=== PATIENT | male | born 1995 | race Caucasian/White ===

== ENCOUNTER 2023-06-13 01:56 | Emergency (ER) | payer OTHER ==
[2023-06-13] MEDS ORDERED: Augmentin 875-125 Tablet PO ONE (02:24)
[2023-06-13] MEDS ORDERED: NORCO 5/325 MG PO ONE (02:24)
--- NOTE | 2023-06-13 02:29 | ERPHSYRPT ---
- History of Present Illness Source: patient Physician History: 28 years old male with no past medical history presented to the emergency room with a chief complaint of right upper wisdom tooth ache and swelling that he has been having for the last couple of days. The patient has been taking Tylenol only. He is allergic to nonsteroidals which cause anaphylaxis. He is also doing mouthwash with Listerine. He has not called his dentist yet. He denies any difficulty swallowing or breathing. Allergies/Adverse Reactions: aspirin Allergy (Severe, Verified 06/13/23 02:33) Tightness of Throat naproxen Allergy (Severe, Verified 06/13/23 02:33) Tightness of Throat - Review of Systems Constitutional: No Fever, No Chills Eyes: No Symptoms Ears, Nose, & Throat: No Symptoms, Other (Tooth ache) Respiratory: No Cough, No Dyspnea Cardiac: No Chest Pain, No Edema, No Syncope Abdominal/Gastrointestinal: No Abdominal Pain, No Nausea, No Vomiting, No Diarrhea Genitourinary Symptoms: No Dysuria Musculoskeletal: No Back Pain, No Neck Pain Skin: No Rash Neurological: No Dizziness, No Focal Weakness, No Sensory Changes Psychological: No Symptoms Endocrine: No Symptoms All Other Systems: Reviewed and Negative - Nursing Vital Signs Nursing Vital Signs: Initial Vital Signs Temperature 98.6 F 06/13/23 02:13 Pulse Rate 85 06/13/23 02:13 Respiratory Rate 16 06/13/23 02:13 Blood Pressure 127/77 06/13/23 02:13 O2 Sat by Pulse Oximetry 99 06/13/23 02:13 Pain Scale Pain Intensity 6 - Physical Exam General Appearance: no apparent distress, alert Eye Exam: PERRL/EOMI, eyes nml inspection Ears, Nose, Throat Exam: normal ENT inspection, TMs normal, pharynx normal, moist mucous membranes, other (Tenderness over the right upper wisdom tooth with swelling to the gum.) Neck Exam: normal inspection, non-tender, supple, full range of motion Respiratory Exam: normal breath sounds, lungs clear, No respiratory distress Cardiovascular Exam: regular rate/rhythm, normal heart sounds, normal peripheral pulses Gastrointestinal/Abdomen Exam: soft, normal bowel sounds, No tenderness, No mass Back Exam: normal inspection, normal range of motion, No CVA tenderness, No vertebral tenderness Extremity Exam: normal inspection, normal range of motion, pelvis stable Neurologic Exam: alert, oriented x 3, cooperative, normal mood/affect, nml cerebellar function, nml station & gait, sensation nml, No motor deficits Skin Exam: normal color, warm, dry, No rash Lymphatic Exam: No adenopathy - Course Nursing assessment & vital signs reviewed: Yes Ordered Tests: Medication Summary Discontinued Medications Generic Name Dose Route Start Last Admin Trade Name Michael PRN Reason Stop Dose Admin Hydrocodone Bitart/Acetaminophen 2 tab 06/13/23 02:24 Hydrocodone/Apap 5/325 1 Tab Tablet PO 06/13/23 02:25 SENT HOME W/ PATIENT ONE Amoxicillin/Clavulanate Potassium 875 mg 06/13/23 02:24 Amox Tr/Potassium Clavulanate 875 Mg Tablet PO 06/13/23 02:25 STAT ONE - Progress Progress: unchanged Progress Note: 06/13/23 02:27 28 years old male with no past medical history presented to the emergency room with a chief complaint of right upper wisdom tooth ache and swelling that he has been having for the last couple of days. The patient has been taking Tylenol only. He is allergic to nonsteroidals which cause anaphylaxis. He is also doing mouthwash with Listerine. He has not called his dentist yet. He denies any difficulty swallowing or breathing. Emergency room course and medical decision making: The patient will be treated for tooth abscess with Augmentin 875 [address] He [address] himself to the emergency room he will be given 2 [place] tablets that he can take at home. Discharged home on Augmentin 500 mg 3 times a day Call his dentist. - Departure Departure Disposition: Home Clinical Impression: Tooth ache Condition: Stable Critical Care Time: No Instructions: Tooth Abscess (DC), Tooth Decay, Adult (DC), Dental Pain (DC) Prescriptions: Amoxicillin/Potassium Clav [Augmentin 500-125 Tablet] 1 each PO TID 7 Days tablet
[2023-06-13 02:31] VITALS: BP 127/77; PULSE 85; RESP 16; TEMP 98.6; O2SAT 99
[2023-06-13] MEDS ORDERED: Augmentin 875-125 Tablet ONE (02:40)
[2023-06-13] MEDS ORDERED: NORCO 5/325 MG ONE (02:40)
== END 2023-06-13 03:21 | disposition home or self-care (01) ==
LOC: ED 01:56
DX: K08.89 Other specified disorders of teeth and supporting structures (principal); K04.7 Periapical abscess without sinus
CPT/HCPCS: 99281; A9270-GY

== ENCOUNTER 2023-06-15 22:26 | Emergency (ER) | payer OTHER ==
[2023-06-15 22:47] VITALS: TEMP 98
[2023-06-15] MEDS ORDERED: MORPHINE SULFATE 4 MG INJ IV ONE (22:47)
[2023-06-15] MEDS ORDERED: Zofran 4 MG/2 ML VIAL IV ONE (22:47)
--- NOTE | 2023-06-15 22:47 | ERPHSYRPT ---
- History of Present Illness Time Seen by Provider: 06/15/23 22:37 Source: patient Exam Limitations: no limitations Physician History: About 45 minutes ago pt was working at [facility] at [place], [place], when he was pulled into a conveyor belt and a 3" - 4" spike pierced the right posteriolateral aspect of his mid right thigh with surrounding edema, multiple abrasions and transient numbness of the right large toe. Pt states his last tetanus was 2 years ago. Allergies/Adverse Reactions: aspirin Allergy (Severe, Verified 06/15/23 22:56) Tightness of Throat naproxen Allergy (Severe, Verified 06/15/23 22:56) Tightness of Throat Hx Tetanus, Diphtheria Vaccination/Date Given: Yes Hx Influenza Vaccination/Date Given: No Hx Pneumococcal Vaccination/Date Given: No Travel Risk - Vaccine Status Have you recieved a Covid-19 vaccination: No - Review of Systems Respiratory: No Dyspnea Cardiac: No Chest Pain Abdominal/Gastrointestinal: No Abdominal Pain Musculoskeletal: Other (right thigh trauma about 45 minutes ago) Neurological: Sensory Changes (transient numbness of right large toe today after injury to right thigh) - Past Medical History Pertinent Past Medical History: Yes Other Medical History: gastric ulcers, kidney stones - Past Surgical History Past Surgical History: No - Social History Smoking Status: Current every day smoker How long have you smoked: 10 yrs Exposure to second hand smoke: Yes Drug Use: none - Nursing Vital Signs Nursing Vital Signs: Initial Vital Signs Blood Pressure 119/97 06/15/23 22:43 O2 Sat by Pulse Oximetry 100 06/15/23 22:43 Pain Scale Pain Intensity 8 - Physical Exam General Appearance: alert Eyes, Ears, Nose, Throat Exam: TMs normal, pharynx normal Neck Exam: normal inspection, non-tender Cardiovascular/Respiratory Exam: normal breath sounds, heart sounds normal Gastrointestinal/Abdominal Exam: soft Back Exam: No vertebral tenderness Hips Exam: right: limited range of motion (limited flexion), left: normal range of motion Legs Exam: right leg: limited range of motion, left leg: normal range of motion Knees Exam: right knee: other (limited extension ), left knee: normal range of motion Ankle Exam: bilateral ankle: normal range of motion Foot Exam: bilateral foot: normal range of motion Neuro/Tendon Exam: normal sensation Mental Status Exam: alert, cooperative Skin Exam: other (Posteriolateral aspect of mid right thigh has a deep 3 cm x 2 cm laceration/skin avulsion with surrounding multiple abrasions and tenderness and edema of the right thigh.), No cyanosis SpO2 Interpretation: normal SpO2: 100 O2 Delivery: Room Air - Radiology Exams Right Femur X-ray Interpretation: Interpreted by me, No Fracture Ordered Tests: Active Orders 24 hr Category Date Time Status IV Insertion STAT Care 06/15/23 22:47 Active FEMUR Stat Exams 06/15/23 22:50 Taken BMP Stat Lab 06/15/23 23:08 Completed CBC W DIFF Stat Lab 06/15/23 23:08 Completed UA W/RFX UR CULTURE Stat Lab 06/15/23 23:21 Completed Urine Triage Profile Stat Lab 06/15/23 23:21 Completed Medication Summary Generic Name Dose Route Start Last Admin Trade Name Freq PRN Reason Stop Dose Admin Sodium Chloride 1,000 mls @ 100 mls/hr 06/15/23 23:00 06/15/23 23:13 Sodium Chloride 0.9% 1000 Ml IV 07/15/23 22:59 100 mls/hr .Q10H ENRIQUE Administration Discontinued Medications Generic Name Dose Route Start Last Admin Trade Name Freq PRN Reason Stop Dose Admin Clindamycin HCl/Dextrose 600 mg in 50 mls @ 100 mls/hr 06/15/23 22:54 06/15/23 23:58 Clindamycin-D5w 600 Mg/50 Ml IV 06/15/23 23:23 Infused STAT STA Infusion Clindamycin HCl/Dextrose Confirm 06/15/23 23:07 Clindamycin-D5w 600 Mg/50 Ml Administered 06/15/23 23:08 Dose 600 mg in 50 mls @ ud IV .STK-MED ONE Morphine Sulfate 4 mg 06/15/23 22:47 06/15/23 23:15 Morphine Sulfate 4 Mg/Ml Injection IV 06/15/23 22:48 4 mg STAT ONE Administration Morphine Sulfate Confirm 06/15/23 23:06 Morphine Sulfate 4 Mg/Ml Injection Administered 06/15/23 23:07 Dose 4 mg .ROUTE .STK-MED ONE Ondansetron HCl 4 mg 06/15/23 22:47 06/15/23 23:15 Ondansetron Hcl 4 Mg/2 Ml Vial IV 06/15/23 22:48 4 mg STAT ONE Administration Ondansetron HCl Confirm 06/15/23 23:06 Ondansetron Hcl 4 Mg/2 Ml Vial Administered 06/15/23 23:07 Dose 4 mg .ROUTE .STK-MED ONE Lab/Rad Data: Laboratory Result Diagrams 06/15/23 23:08 06/15/23 23:08 Laboratory Results 06/15/23 06/15/23 06/15/23 Range/Units 23:21 23:21 23:08 WBC (4.0-10.5) x10^3/uL RBC (4.1-5.6) x10^6/uL Hgb (12.5-18.0) g/dL Hct (42-50) % MCV (78-100) fL MCH (26-32) pg MCHC (32-36) g/dL RDW (11.5-14.0) % Plt Count (150-450) x10^3/uL MPV (7.5-11.0) fL Gran % (36.0-66.0) % Immature Gran % (Auto) (0.00-0.4) % Nucleat RBC Rel Count (0.00-0.1) % Eos # (Auto) (0-0.5) x10^3/uL Immature Gran # (Auto) (0.00-0.03) x10^3u/L Absolute Lymphs (auto) (1.0-4.6) x10^3/uL Absolute Monos (auto) (0.0-1.3) x10^3/uL Absolute Nucleated RBC (0.00-0.01) x10^3u/L Lymphocytes % (24.0-44.0) % Monocytes % (0.0-12.0) % Eosinophils % (0.00-5.0) % Basophils % (0.0-0.4) % Absolute Granulocytes (1.4-6.9) x10^3/uL Basophils # (0-0.4) x10^3/uL Sodium 138 (137-145) mmol/L Potassium 3.5 (3.5-5.1) mmol/L Chloride 105 (98-107) mmol/L Carbon Dioxide 24 (22-30) mmol/L Anion Gap 12.4 (5-15) MEQ/L BUN 11 (9-20) mg/dL Creatinine 0.70 (0.66-1.25) mg/dL Estimated GFR 130.3 ML/MIN Glucose 90 (74-106) mg/dL Calcium 9.5 (8.4-10.2) mg/dL Urine Color Yellow (Yellow) Urine Appearance Clear (Clear) Urine pH 7.5 (4.6-8.0) Ur Specific [place] 1.020 (1.005-1.030) Urine Protein Negative (Negative) Urine Glucose (UA) Negative (Negative) mg/dL Urine Ketones Negative (Negative) Urine Blood Negative (Negative) Urine Nitrite Negative (Negative) Urine Bilirubin Negative (Negative) Urine Urobilinogen 1.0 A (0.2) mg/dL Ur Leukocyte Esterase Negative (Negative) U Hyaline Cast (Auto) NONE SEEN (0-2) /LPF Urine Microscopic RBC 0-2 (0-5) /HPF Urine Microscopic WBC 0-2 (0-5) /HPF Ur Epithelial Cells None Seen (None Seen) /HPF Urine Bacteria None Seen (None Seen) /HPF Urine Culture Reflexed NO (NO) Urine Opiates Level NEGATIVE (NEGATIVE) Ur Methadone NEGATIVE (NEGATIVE) Urine Barbiturates NEGATIVE (NEGATIVE) Ur Phencyclidine (PCP) NEGATIVE (NEGATIVE) Urine Amphetamine NEGATIVE (NEGATIVE) U Benzodiazepine Level NEGATIVE (NEGATIVE) Urine Cocaine NEGATIVE (NEGATIVE) Urine Marijuana (THC) POSITIVE A (NEGATIVE) 06/15/23 Range/Units 23:08 WBC 5.7 (4.0-10.5) x10^3/uL RBC 5.06 (4.1-5.6) x10^6/uL Hgb 15.4 (12.5-18.0) g/dL Hct 44.8 (42-50) % MCV 88.5 (78-100) fL MCH 30.4 (26-32) pg MCHC 34.4 (32-36) g/dL RDW 11.6 (11.5-14.0) % Plt Count 229 (150-450) x10^3/uL MPV 9.5 (7.5-11.0) fL Gran % 70.4 H (36.0-66.0) % Immature Gran % (Auto) 0.2 (0.00-0.4) % Nucleat RBC Rel Count 0.0 (0.00-0.1) % Eos # (Auto) 0.06 (0-0.5) x10^3/uL Immature Gran # (Auto) 0.01 (0.00-0.03) x10^3u/L Absolute Lymphs (auto) 1.28 (1.0-4.6) x10^3/uL Absolute Monos (auto) 0.29 (0.0-1.3) x10^3/uL Absolute Nucleated RBC 0.00 (0.00-0.01) x10^3u/L Lymphocytes % 22.7 L (24.0-44.0) % Monocytes % 5.1 (0.0-12.0) % Eosinophils % 1.1 (0.00-5.0) % Basophils % 0.5 (0.0-0.4) % Absolute Granulocytes 3.98 (1.4-6.9) x10^3/uL Basophils # 0.03 (0-0.4) x10^3/uL Sodium (137-145) mmol/L Potassium (3.5-5.1) mmol/L Chloride (98-107) mmol/L Carbon Dioxide (22-30) mmol/L Anion Gap (5-15) MEQ/L BUN (9-20) mg/dL Creatinine (0.66-1.25) mg/dL Estimated GFR ML/MIN Glucose (74-106) mg/dL Calcium (8.4-10.2) mg/dL Urine Color (Yellow) Urine Appearance (Clear) Urine pH (4.6-8.0) Ur Specific [place] (1.005-1.030) Urine Protein (Negative) Urine Glucose (UA) (Negative) mg/dL Urine Ketones (Negative) Urine Blood (Negative) Urine Nitrite (Negative) Urine Bilirubin (Negative) Urine Urobilinogen (0.2) mg/dL Ur Leukocyte Esterase (Negative) U Hyaline Cast (Auto) (0-2) /LPF Urine Microscopic RBC (0-5) /HPF Urine Microscopic WBC (0-5) /HPF Ur Epithelial Cells (None Seen) /HPF Urine Bacteria (None Seen) /HPF Urine Culture Reflexed (NO) Urine Opiates Level (NEGATIVE) Ur Methadone (NEGATIVE) Urine Barbiturates (NEGATIVE) Ur Phencyclidine (PCP) (NEGATIVE) Urine Amphetamine (NEGATIVE) U Benzodiazepine Level (NEGATIVE) Urine Cocaine (NEGATIVE) Urine Marijuana (THC) (NEGATIVE) - Progress Progress: unchanged Will see patient in: other (Dr. Rosario([id number]) accepted pt for transfer to [facility] ER.) Counseled pt/family regarding: lab results, diagnosis, need for follow-up, rad results Medical Desision Making - Diagnostic Testing Diagnostic test were ordered, analyzed, and reviewed by me: Yes Radiological Interpretation: Interpreted by me - Departure Departure Disposition: Transfer ([facility] ER) Clinical Impression: Deep puncture wound/laceration R thigh, Contusions/Abrasions to right thigh Condition: Stable Critical Care Time: No Referrals: DOCTOR,NO FAMILY [Primary Care Provider] - Follow up/PCP as directed
[2023-06-15] MEDS ORDERED: CLINDAMYCIN-D5W 600 MG/50 ML*** 600 MG/50 ML BAG IV STA (22:54)
[2023-06-15] MEDS ORDERED: Sodium Chloride 0.9% 1000 ML 1,000 ML IV SCH (23:00)
[2023-06-15] MEDS ORDERED: Sodium Chloride 0.9% 1000 ML 1,000 ML ONE (23:06)
[2023-06-15] MEDS ORDERED: Zofran 4 MG/2 ML VIAL ONE (23:06)
[2023-06-15] MEDS ORDERED: MORPHINE SULFATE 4 MG INJ ONE (23:06)
[2023-06-15] MEDS ORDERED: CLINDAMYCIN-D5W 600 MG/50 ML*** 600 MG/50 ML BAG IV ONE (23:07)
[2023-06-15 23:10] LABS: Absolute Neutrophil Ct (ANC) 3.98 x10^3/uL (1.4-6.9); BASOPHIL % 0.5 % (0.0-0.4); Basophil (Absolute #) 0.03 x10^3/uL (0-0.4); Eosinophil % 1.1 % (0.00-5.0); Eosinophil (Absolute #) 0.06 x10^3/uL (0-0.5); Hematocrit 44.8 % (42-50); Hemoglobin 15.4 g/dL (12.5-18.0); IMMATURE GRAN # 0.01 x10^3u/L (0.00-0.03); IMMATURE GRAN % 0.2 % (0.00-0.4); Lymphocyte (Absolute #) 1.28 x10^3/uL (1.0-4.6); Lymphocytes % 22.7 % (24.0-44.0); Mean Cell Volume 88.5 fL (78-100); Mean Corpuscular Hemoglobin 30.4 pg (26-32); Mean Corpuscular Hgb Concent. 34.4 g/dL (32-36); Mean Platelet Volume 9.5 fL (7.5-11.0); Monocyte (Absolute #) 0.29 x10^3/uL (0.0-1.3); Monocytes % 5.1 % (0.0-12.0); Neutrophil % 70.4 % (36.0-66.0); Platelet Count 229 x10^3/uL (150-450); Red Blood Count 5.06 x10^6/uL (4.1-5.6); Red Cell Distribution Width 11.6 % (11.5-14.0); White Blood Count 5.7 x10^3/uL (4.0-10.5)
[2023-06-15 23:38] LABS: ANION GAP 12.4 MEQ/L (5-15); Calcium 9.5 mg/dL (8.4-10.2); Creatinine 1 0.7 mg/dL (0.66-1.25); EST GLOMERULAR FILTRATION RATE 130.3 ML/MIN; Potassium 3.5 mmol/L (3.5-5.1)
[2023-06-15 23:41] LABS: Appearance Clear (Clear); Bacteria None Seen /HPF (None Seen); Bilirubin Negative (Negative); Blood Negative (Negative); Epithelial Cells None Seen /HPF (None Seen); Glucose, Urine Negative (Negative); Hyaline Casts NONE SEEN /LPF (0-2); Ketones Negative (Negative); Leukocyte Esterase Negative (Negative); Nitrite Negative (Negative); Ph 7.5 (4.6-8.0); Protein,Urine Dip Negative (Negative); RBC 0-2 /HPF (0-5); WBC 0-2 /HPF (0-5)
[2023-06-15 23:43] LABS: ADD URINE CULTURE? NO (NO)
[2023-06-15 23:52] LABS: Amphetamine,Urine NEGATIVE (NEGATIVE); Barbiturate,Urine NEGATIVE (NEGATIVE); Benzodiazepine,Urine NEGATIVE (NEGATIVE); Cocaine,Urine NEGATIVE (NEGATIVE); Methadone,Urine NEGATIVE (NEGATIVE); Opiate,Urine NEGATIVE (NEGATIVE); PCP,Urine NEGATIVE (NEGATIVE); THC,Urine POSITIVE (NEGATIVE)
[2023-06-16 04:07] VITALS: RESP 16
[2023-06-16] MEDS ORDERED: MORPHINE SULFATE 4 MG INJ IV ONE (05:43)
[2023-06-16] MEDS ORDERED: Zofran 4 MG/2 ML VIAL IV ONE (05:44)
[2023-06-16] MEDS ORDERED: Zofran 4 MG/2 ML VIAL ONE (05:45)
[2023-06-16] MEDS ORDERED: MORPHINE SULFATE 4 MG INJ ONE (05:46)
[2023-06-16 07:13] VITALS: BP 129/70; PULSE 74; O2SAT 97
--- NOTE | 2023-06-16 08:44 | XRAY ---
Indication: Trauma. Laceration. Comparison: None 2 view right femur demonstrates incidental tiny posterior knee fabella. No other bony, articular, or soft tissue abnormalities.
== END 2023-06-16 07:14 | disposition short-term general hospital (02) ==
LOC: ED 22:26
DX: S71.131A Puncture wound without foreign body, right thigh, initial encounter (principal); S70.11XA Contusion of right thigh, initial encounter; W31.82XA Contact with other commercial machinery, initial encounter; Y92.63 Factory as the place of occurrence of the external cause; Y99.0 Civilian activity done for income or pay; Z28.310 Unvaccinated for COVID-19; Z72.0 Tobacco use
CPT/HCPCS: 36000; 36415; 73552; 80048; 80307; 81001; 85025; 96365; 96374; 96375; 96376; 99285; J2270; J2405

== ENCOUNTER 2023-07-30 14:56 | Emergency (ER) | payer OTHER ==
[2023-07-30 15:18] VITALS: TEMP 97.2
--- NOTE | 2023-07-30 15:26 | ERPHSYRPT ---
- History of Present Illness Time Seen by Provider: 07/30/23 15:26 Source: patient, family Exam Limitations: no limitations Patient Subjective Stated Complaint: pt co swelling and matting to right eye this morning, no fever, Triage Nursing Assessment: pt alert, walked in, resp easy, skin w/d/p.. has a small raised area under right eye with slight swelling, no drainage Physician History: This is a 28-year-old white male patient who woke up this morning with swelling around his right eye with matting of his right eye. Patient denies any injury to his right eye. There is been no drainage. There is been no discoloration or inflammation of the whites of his right eye. Patient denies fever. He has not been exposed to anybody with similar symptoms Timing/Duration: today Location: right eye Severity: mild Apparent Injury: no (To moderate) Associated Symptoms: redness, matting, eyelid swelling (Lower), No foreign body sensation Chemical Exposure: No Trauma: No Welding Arc/Tanning Bed Exposure: No Allergies/Adverse Reactions: aspirin Allergy (Severe, Verified 06/15/23 22:56) Tightness of Throat naproxen Allergy (Severe, Verified 06/15/23 22:56) Tightness of Throat peanut Allergy (Verified 07/30/23 15:13) Hx Tetanus, Diphtheria Vaccination/Date Given: Yes Hx Influenza Vaccination/Date Given: No Hx Pneumococcal Vaccination/Date Given: No Immunizations Up to Date: Yes Travel Risk - International Travel Have you traveled outside of the country in past 3 weeks: No - Coronavirus Screening Are you exhibiting any of the following symptoms?: No Close contact with a COVID-19 positive Pt in past 14-21 Days: No - Vaccine Status Have you recieved a Covid-19 vaccination: No - Review of Systems Constitutional: No Symptoms Eyes: Other (Redness and swelling right lower eyelid and upper cheek on the right side) Ears, Nose, & Throat: No Symptoms Respiratory: No Symptoms Cardiac: No Symptoms Abdominal/Gastrointestinal: No Symptoms Genitourinary Symptoms: No Symptoms Musculoskeletal: No Symptoms Skin: No Symptoms Neurological: No Symptoms Psychological: No Symptoms Endocrine: No Symptoms Hematologic/Lymphatic: No Symptoms Immunological/Allergic: No Symptoms All Other Systems: Reviewed and Negative - Past Medical History Pertinent Past Medical History: Yes Musculoskeletal History: Other Other Medical History: pt for leg - Past Surgical History Past Surgical History: No - Social History Smoking Status: Current every day smoker How long have you smoked: 10 yrs Exposure to second hand smoke: Yes Drug Use: none Patient Lives Alone: No - Nursing Vital Signs Nursing Vital Signs: Initial Vital Signs Temperature 97.2 F 07/30/23 15:17 Pulse Rate 88 07/30/23 15:17 Respiratory Rate 18 07/30/23 15:17 Blood Pressure 122/83 07/30/23 15:17 O2 Sat by Pulse Oximetry 95 07/30/23 15:17 Pain Scale Pain Intensity 8 - Physical Exam General Appearance: no apparent distress, alert, anxiety Vision Acuity Degree Evaluation Phase: Uncorrected Vision Acuity Right Eye: 20/70 Vision Acuity Left Eye: 20/50 Eye Exam: bilateral eye: normal inspection, PERRL, EOMI Ears, Nose, Throat Exam: normal ENT inspection, moist mucous membranes Neck Exam: normal inspection, non-tender, supple, full range of motion Respiratory Exam: airway intact, No chest tenderness, No respiratory distress Gastrointestinal Exam: No tenderness Extremity Exam: normal inspection, normal range of motion, pelvis stable Neurologic: alert, oriented x 3, cooperative, fisheries director II-XII nml as tested, normal mood/affect, nml cerebellar function, nml station & gait, sensation nml Skin Exam: other (Mild cellulitis and swelling under right eye) Lymphatic: No adenopathy SpO2 Interpretation: normal SpO2: 95 O2 Delivery: Room Air - Course Nursing assessment & vital signs reviewed: Yes Ordered Tests: Active Orders 24 hr Category Date Time Status Visual Acuity STAT Care 07/30/23 15:03 Active Medication Summary Discontinued Medications Generic Name Dose Route Start Last Admin Trade Name Michael PRN Reason Stop Dose Admin Prednisone 20 mg 07/30/23 15:49 Prednisone 20 Mg Tablet PO 07/30/23 15:50 STAT ONE Trimethoprim/Sulfamethoxazole 1 tab 07/30/23 15:49 Smz/Tmp Ds Tablet 1 Tablet PO 07/30/23 15:50 STAT ONE - Progress Progress: unchanged Progress Note: 07/30/23 15:54 This patient's medical issue is 1 of low complexity. The level of complexity in the workup performed is based on review of the patient's past medical history, review of the patient's medication list, review of patient drug allergy list, history present illness and physical findings on examination. No laboratory radiographic studies are necessary in this patient. Counseled pt/family regarding: diagnosis, need for follow-up Medical Desision Making - Diagnostic Testing Diagnostic test were ordered, analyzed, and reviewed by me: No - Risk of complications The pt has a mod risk of morbidity or mortality based on: Need for prescription drug management - Departure Departure Disposition: Home Clinical Impression: Cellulitis of right external cheek Condition: Stable Critical Care Time: No Additional Instructions: Warm compresses to area 2 times a day. May use Tylenol for pain and fever control. Take your antibiotics and steroids as prescribed. Call your primary care provider tomorrow, 07/31/2023, to make arrangements for follow-up appointment in the next 5 to 7 days. Forms: Work/School Release Form Prescriptions: Smz/Tmp Ds Tablet [Bactrim Ds Tablet] 1 udtab PO BID #14 tablet Prednisone 10 mg [Deltasone 10 mg] 10 mg PO TID #12 tablet
[2023-07-30] MEDS: DELTASONE 20 MG PO ONE (15:57)
[2023-07-30] MEDS: BACTRIM DS TABLET PO ONE (15:57)
[2023-07-30] MEDS ORDERED: DELTASONE 20 MG ONE (16:04)
[2023-07-30] MEDS ORDERED: BACTRIM DS TABLET PO ONE (16:04)
[2023-07-30 16:06] VITALS: BP 128/73
[2023-07-30 16:16] VITALS: PULSE 70; RESP 16; O2SAT 95
== END 2023-07-30 16:16 | disposition home or self-care (01) ==
LOC: ED 14:56
DX: L03.211 Cellulitis of face (principal); Z79.52 Long term (current) use of systemic steroids; Z28.310 Unvaccinated for COVID-19; Z72.0 Tobacco use
CPT/HCPCS: 99282; A9270-GY

== ENCOUNTER 2023-10-12 02:07 | Emergency (ER) | payer SELFPAY ==
[2023-10-12 02:19] VITALS: TEMP 96
[2023-10-12] MEDS ORDERED: Sodium Chloride 0.9% 1000 ML 1,000 ML ONE ×2 (02:23→03:36)
[2023-10-12] MEDS: Sodium Chloride 0.9% 1000 ML 1,000 ML IV SCH (02:24)
[2023-10-12 02:54] LABS: Absolute Neutrophil Ct (ANC) 9.17 x10^3/uL (1.4-6.9); BASOPHIL % 0.4 % (0.0-0.4); Basophil (Absolute #) 0.04 x10^3/uL (0-0.4); Eosinophil % 0.2 % (0.00-5.0); Eosinophil (Absolute #) 0.02 x10^3/uL (0-0.5); Hemoglobin 16.6 g/dL (12.5-18.0); IMMATURE GRAN # 0.03 x10^3u/L (0.00-0.03); IMMATURE GRAN % 0.3 % (0.00-0.4); Lymphocyte (Absolute #) 1.18 x10^3/uL (1.0-4.6); Mean Cell Volume 85.7 fL (78-100); Mean Corpuscular Hemoglobin 30.9 pg (26-32); Mean Corpuscular Hgb Concent. 36.1 g/dL (32-36); Mean Platelet Volume 9.4 fL (7.5-11.0); Monocyte (Absolute #) 0.33 x10^3/uL (0.0-1.3); Monocytes % 3.1 % (0.0-12.0); Platelet Count 252 x10^3/uL (150-450); Red Blood Count 5.37 x10^6/uL (4.1-5.6); Red Cell Distribution Width 11.5 % (11.5-14.0); White Blood Count 10.8 x10^3/uL (4.0-10.5)
[2023-10-12 03:01] LABS: ACETAMINOPHEN < 10 ug/ml (10-30); ALBUMIN 4.9 g/dL (3.5-5.0); ALKALINE PHOSPHATASE 80 U/L (38-126); ANION GAP 20.3 MEQ/L (5-15); BLOOD UREA NITROGEN 9 mg/dL (9-20); CHLORIDE 107 mmol/L (98-107); Calcium 9.4 mg/dL (8.4-10.2); Creatinine 1 0.83 mg/dL (0.66-1.25); EST GLOMERULAR FILTRATION RATE 123.8 ML/MIN; ETHYL ALCOHOL 130 mg/dL (0-10); Glucose 88 mg/dL (74-106); Potassium 3.9 mmol/L (3.5-5.1); SALICYLATE < 1.0 mg/dL (2-20); SGOT/AST 27 U/L (17-59); SGPT/ALT 22 U/L (0-50); SODIUM 140 mmol/L (135-145); Total Protein 7.9 g/dL (6.3-8.2)
[2023-10-12 03:09] LABS: Carbon Dioxide 16 mmol/L (22-30)
--- NOTE | 2023-10-12 03:09 | ERPHSYRPT ---
- History of Present Illness Time Seen by Provider: 10/12/23 03:04 Source: EMS, police Patient Subjective Stated Complaint: per EMS, pt's friends called 911 on him due to being unresponsive/vomiting Triage Nursing Assessment: Pt brought in by EMS. Pt was with his friends at the [facility]. They all went to the gas station and pt began vomiting and when they returned pt was in a tripod position and they couldn't get him out of the vehicle. Pt continued to vomit. Pt is alert to name. Pt is drowsy/in and out of sleep. Pt denies any pain. Pt used cocaine approx 4 hours ago and had marijuana approx 1.5 hours ago. He also drank some liquor. Lungs clear, heart tones reg. Pt is hyperventilating. Abd soft with active bs x4 quad, nontender on palpation. Physician History: Mr Lino Almanzar is 28 years old male was with his friends at the [facility]. They all went to the gas station and pt began vomiting and when they returned pt was in a tripod position and they couldn't get him out of the vehicle. Patient continued to vomit. Patient is alert to name. Pt is drowsy/in and out of sleep. He denies any pain. He used cocaine approximately 4 hours ago and had marijuana approximately 1.5 hours ago. He also drank some liquor. Denies any other symptoms, sleeping now Timing/Duration: today Associated Symptoms: vomiting Allergies/Adverse Reactions: aspirin Allergy (Severe, Verified 10/12/23 02:17) Tightness of Throat naproxen Allergy (Severe, Verified 10/12/23 02:17) Tightness of Throat peanut Allergy (Verified 10/12/23 02:17) Home Medications: No Reportable Medications [No Reported Medications] 10/12/23 [History] Hx Tetanus, Diphtheria Vaccination/Date Given: Yes Hx Influenza Vaccination/Date Given: No Hx Pneumococcal Vaccination/Date Given: No Travel Risk - International Travel Have you traveled outside of the country in past 3 weeks: No - Emerging Infectious Disease Are you exhibiting symptoms associated with any current EIDs: Yes Symptoms: Vomitting - Review of Systems Constitutional: Lethargy, No Fever, No Chills Eyes: No Symptoms Ears, Nose, & Throat: No Symptoms Respiratory: No Cough, No Dyspnea Cardiac: No Chest Pain, No Edema, No Syncope Abdominal/Gastrointestinal: Nausea, Vomiting, No Abdominal Pain, No Diarrhea Genitourinary Symptoms: No Dysuria Musculoskeletal: No Back Pain, No Neck Pain Skin: No Rash Neurological: Lethargy, No Dizziness, No Focal Weakness, No Sensory Changes Psychological: No Symptoms Endocrine: No Symptoms Hematologic/Lymphatic: No Symptoms All Other Systems: Reviewed and Negative - Past Medical History Pertinent Past Medical History: Yes Musculoskeletal History: Other Other Medical History: pt for leg - Past Surgical History Past Surgical History: No - Social History Smoking Status: Current every day smoker How long have you smoked: 10 yrs Exposure to second hand smoke: Yes Drug Use: marijuana, cocaine Patient Lives Alone: No - Nursing Vital Signs Nursing Vital Signs: Initial Vital Signs Temperature 96.0 F 10/12/23 02:17 Pulse Rate 90 10/12/23 02:17 Respiratory Rate 24 10/12/23 02:17 Blood Pressure 118/74 10/12/23 02:17 O2 Sat by Pulse Oximetry 100 10/12/23 02:17 Pain Scale Pain Intensity 0 - Physical Exam General Appearance: no apparent distress, alert Eye Exam: PERRL/EOMI, eyes nml inspection Ears, Nose, Throat Exam: normal ENT inspection, TMs normal, pharynx normal, moist mucous membranes Neck Exam: normal inspection, non-tender, supple, full range of motion Respiratory Exam: normal breath sounds, lungs clear, No respiratory distress Cardiovascular Exam: regular rate/rhythm, normal heart sounds, normal peripheral pulses Gastrointestinal/Abdomen Exam: soft, normal bowel sounds, No tenderness, No mass Back Exam: normal inspection, normal range of motion, No CVA tenderness, No vertebral tenderness Extremity Exam: normal inspection, normal range of motion, pelvis stable Neurologic Exam: alert, oriented x 3, cooperative, normal mood/affect, nml cerebellar function, nml station & gait, sensation nml, No motor deficits Skin Exam: normal color, warm, dry, No rash Lymphatic Exam: No adenopathy SpO2: 100 - Course Nursing assessment & vital signs reviewed: Yes EKG Interpreted by Me: Sinus Rhythm Rhythm Strip: Normal Sinus Rhythm - CT Exams Head CT Interpretation: Tele-radiologist Report, No/Intracranial Hemorrhag Ordered Tests: Active Orders 24 hr Category Date Time Status HEAD WITHOUT CONTRAST [CT] Stat Exams 10/12/23 03:09 Completed ACETAMINOPHEN Stat Lab 10/12/23 02:49 Completed CBC W DIFF Stat Lab 10/12/23 02:49 Completed CMP Stat Lab 10/12/23 02:49 Completed ETHYL ALCOHOL Stat Lab 10/12/23 02:49 Completed SALICYLATE Stat Lab 10/12/23 02:49 Completed TROPONIN Q4H Lab 10/12/23 02:49 Completed TROPONIN Q4H Lab 10/12/23 06:45 Ordered TROPONIN Q4H Lab 10/12/23 10:45 Ordered Urine Triage Profile Stat Lab 10/12/23 02:50 Completed Medication Summary Generic Name Dose Route Start Last Admin Trade Name Freq PRN Reason Stop Dose Admin Sodium Chloride 1,000 mls @ 999 mls/hr 10/12/23 02:30 10/12/23 03:34 Sodium Chloride 0.9% 1000 Ml IV 11/11/23 02:29 Infused .Q1H1M ENRIQUE Infusion Discontinued Medications Generic Name Dose Route Start Last Admin Trade Name Freq PRN Reason Stop Dose Admin Sodium Chloride 1,000 mls @ 999 mls/hr 10/12/23 03:35 10/12/23 04:35 Sodium Chloride 0.9% 1000 Ml IV 10/12/23 04:35 Infused .Q1H1M STA Infusion Lab/Rad Data: Laboratory Result Diagrams 10/12/23 02:49 10/12/23 02:49 Laboratory Results 10/12/23 10/12/23 10/12/23 Range/Units 02:50 02:49 02:49 WBC (4.0-10.5) x10^3/uL RBC (4.1-5.6) x10^6/uL Hgb (12.5-18.0) g/dL Hct (42-50) % MCV (78-100) fL MCH (26-32) pg MCHC (32-36) g/dL RDW (11.5-14.0) % Plt Count (150-450) x10^3/uL MPV (7.5-11.0) fL Gran % (36.0-66.0) % Immature Gran % (Auto) (0.00-0.4) % Nucleat RBC Rel Count (0.00-0.1) % Eos # (Auto) (0-0.5) x10^3/uL Immature Gran # (Auto) (0.00-0.03) x10^3u/L Absolute Lymphs (auto) (1.0-4.6) x10^3/uL Absolute Monos (auto) (0.0-1.3) x10^3/uL Absolute Nucleated RBC (0.00-0.01) x10^3u/L Lymphocytes % (24.0-44.0) % Monocytes % (0.0-12.0) % Eosinophils % (0.00-5.0) % Basophils % (0.0-0.4) % Absolute Granulocytes (1.4-6.9) x10^3/uL Basophils # (0-0.4) x10^3/uL Sodium 140 (135-145) mmol/L Potassium 3.9 (3.5-5.1) mmol/L Chloride 107 (98-107) mmol/L Carbon Dioxide 16 L* (22-30) mmol/L Anion Gap 20.3 H (5-15) MEQ/L BUN 9 (9-20) mg/dL Creatinine 0.83 (0.66-1.25) mg/dL Estimated GFR 123.8 ML/MIN Glucose 88 (74-106) mg/dL Calcium 9.4 (8.4-10.2) mg/dL Total Bilirubin 0.70 (0.2-1.3) mg/dL AST 27 (17-59) U/L ALT 22 (0-50) U/L Alkaline Phosphatase 80 (38-126) U/L Troponin I < 0.012 (0.000-0.033) ng/mL Serum Total Protein 7.9 (6.3-8.2) g/dL Albumin 4.9 (3.5-5.0) g/dL Salicylates < 1.0 L (2-20) mg/dL Urine Opiates Level NEGATIVE (NEGATIVE) Ur Methadone NEGATIVE (NEGATIVE) Acetaminophen < 10 L (10-30) ug/ml Urine Barbiturates NEGATIVE (NEGATIVE) Ur Phencyclidine (PCP) NEGATIVE (NEGATIVE) Urine Amphetamine NEGATIVE (NEGATIVE) U Benzodiazepine Level NEGATIVE (NEGATIVE) Urine Cocaine POSITIVE A (NEGATIVE) Urine Marijuana (THC) POSITIVE A (NEGATIVE) Ethyl Alcohol 130 H (0-10) mg/dL 10/12/23 Range/Units 02:49 WBC 10.8 H (4.0-10.5) x10^3/uL RBC 5.37 (4.1-5.6) x10^6/uL Hgb 16.6 (12.5-18.0) g/dL Hct 46.0 (42-50) % MCV 85.7 (78-100) fL MCH 30.9 (26-32) pg MCHC 36.1 H (32-36) g/dL RDW 11.5 (11.5-14.0) % Plt Count 252 (150-450) x10^3/uL MPV 9.4 (7.5-11.0) fL Gran % 85.0 H (36.0-66.0) % Immature Gran % (Auto) 0.3 (0.00-0.4) % Nucleat RBC Rel Count 0.0 (0.00-0.1) % Eos # (Auto) 0.02 (0-0.5) x10^3/uL Immature Gran # (Auto) 0.03 (0.00-0.03) x10^3u/L Absolute Lymphs (auto) 1.18 (1.0-4.6) x10^3/uL Absolute Monos (auto) 0.33 (0.0-1.3) x10^3/uL Absolute Nucleated RBC 0.00 (0.00-0.01) x10^3u/L Lymphocytes % 11.0 L (24.0-44.0) % Monocytes % 3.1 (0.0-12.0) % Eosinophils % 0.2 (0.00-5.0) % Basophils % 0.4 (0.0-0.4) % Absolute Granulocytes 9.17 H (1.4-6.9) x10^3/uL Basophils # 0.04 (0-0.4) x10^3/uL Sodium (135-145) mmol/L Potassium (3.5-5.1) mmol/L Chloride (98-107) mmol/L Carbon Dioxide (22-30) mmol/L Anion Gap (5-15) MEQ/L BUN (9-20) mg/dL Creatinine (0.66-1.25) mg/dL Estimated GFR ML/MIN Glucose (74-106) mg/dL Calcium (8.4-10.2) mg/dL Total Bilirubin (0.2-1.3) mg/dL AST (17-59) U/L ALT (0-50) U/L Alkaline Phosphatase (38-126) U/L Troponin I (0.000-0.033) ng/mL Serum Total Protein (6.3-8.2) g/dL Albumin (3.5-5.0) g/dL Salicylates (2-20) mg/dL Urine Opiates Level (NEGATIVE) Ur Methadone (NEGATIVE) Acetaminophen (10-30) ug/ml Urine Barbiturates (NEGATIVE) Ur Phencyclidine (PCP) (NEGATIVE) Urine Amphetamine (NEGATIVE) U Benzodiazepine Level (NEGATIVE) Urine Cocaine (NEGATIVE) Urine Marijuana (THC) (NEGATIVE) Ethyl Alcohol (0-10) mg/dL 0001 CT/HEAD WITHOUT CONTRAST CLINICAL HISTORY: unresponsive COMPARISON: None TECHNIQUE: An axial non-contrast CT scan of the brain was performed from the skull base to the high parietal region with multiple reformats. ?one of the following dose reduction techniques were utilized for this exam: Automated exposure control, adjustment of the mA and/or kV according to patient size, use of iterative reconstruction? FINDINGS: No territorial infarctions, intracerebral hematomas, or extra-axial collections. No definite calvarium fractures. The visualized brain parenchyma shows a normal appearance. No focal parenchymal abnormalities are demonstrated. Alvarez-white matter differentiation is maintained. No midline shifts or deformity. Normal size and configuration of the cerebral ventricles. Normal CT appearance of the posterior fossa structures namely the cerebellar hemispheres, brainstem, and cerebellar peduncles. Scanned paranasal sinuses are clear. IMPRESSION: 1. No territorial infarctions, intracerebral hematomas, or extra-axial collections. For diagnosis of acute infarctions, MR diffusion is advised. 2. No definite calvarium fractures. - Progress Progress: improved Counseled pt/family regarding: drug and/or alcohol abuse, lab results, diagnosis, need for follow-up, rad results, smoking cessation Medical Desision Making - Diagnostic Testing Diagnostic test were ordered, analyzed, and reviewed by me: Yes Radiological Interpretation: Teleradiologist Report - Risk of complications The pt has a mod risk of morbidity or mortality based on: Diagnosis or treatment limited by SDOH - Departure Departure Disposition: Home Clinical Impression: Polysubstance use disorder, Syncope and collapse, Vomiting alone Condition: Stable Critical Care Time: No Referrals: DOCTOR,NO FAMILY [Primary Care Provider] - Follow up/PCP as directed Instructions: Alcohol Poisoning (DC), Accidental Overdose (DC) Additional Instructions: Discharge/Care Plan LINO ALMANZAR was seen on 10/12/23 in the Emergency Room. The patient was counseled regarding Diagnosis,Lab results, Imaging studies, need for follow up and when to return to the Emergency Room. Prescriptions given: Discharge Note I have spoken with the patient and/or caregivers. I have explained the patient's condition, diagnosis and treatment plan based on the information available to me at this time. I have answered the patient's and/or caregiver's questions and addressed any concerns. The patient and/or caregivers have as good understanding of the patient's diagnosis, condition and treatment plan as can be expected at this point. The vital signs have been stable. The patient's condition is stable and appropriate for discharge from the emergency department. The patient will pursue further outpatient evaluation with the primary care physician or other designated or consulting physician as outlined in the discharge instructions. The patient and/or caregivers are agreeable to this plan of care and follow-up instructions have been explained in detail. The patient and/or caregivers have received these instruction. The patient/and or caregivers are aware that any significant change in condition or worsening of symptoms should prompt an immediate return to this or the closest emergency department or call 911. LINO LAMANZAR was seen on 10/12/23 n the Emergency Room. At that time you were treated for an emergent condition, during your visit Laboratory, Radiology and/or other procedures may have been ordered. It is very important that you follow-up with your Primary Care Physician NO FAMILY DOCTOR within the next 24- 48 hours to review your Emergency Room visit and the final results of testing that was ordered. Some test results such as Urine Cultures, Blood Cultures, and other cultures if ordered will not be finalized for 24-48 hours. If you do not have a Primary Care Provider please call the medical records department at [phone] ext [phone] to obtain a copy of your results or you may sign into our patient portal to obtain these results by visiting us @ [email or web address] and completing the following steps: 1. Click on the Patient Portal link 2. Click the Patient Self Enrollment Link to complete the enrollment form and entering your 3. Once the enrollment form is completed you will receive an email with a temporary ID and password at the email address you provided. 4. Next choose a user name and password. Your user name must be at least 4 characters long and your password must be at least 4 characters long. 5. Choose a security question from the list and provide your answer to the question. If you already have signed into the Health Portal you may access your Health Care Information 09/12 by the following steps: 1. Login to our website @ [email or web address] 2. Enter your original user name and password. FAQS The [facility] Health Portal is an online tool that contains your Lab Results, Radiology Reports, Visit History, Discharge Instructions and Health Summary Lab and Radiology Results will not be available for 72 hours on the portal. The Portal is a secure site, passwords are encryted and URLs are re-written so they cannot be copied and pasted. You and authorized family members are the only ones who can access your Portal. Also there is a timeout feature that protects your information if you leave the Portal page open. If you have technical difficulty please use the Contact Us link on the page this will allow you to submit any questions you have regarding the Portal or you may contact the Medical Record Department at [phone] ext [phone].
[2023-10-12 03:13] LABS: Amphetamine,Urine NEGATIVE (NEGATIVE); Barbiturate,Urine NEGATIVE (NEGATIVE); Benzodiazepine,Urine NEGATIVE (NEGATIVE); Cocaine,Urine POSITIVE (NEGATIVE); Methadone,Urine NEGATIVE (NEGATIVE); Opiate,Urine NEGATIVE (NEGATIVE); PCP,Urine NEGATIVE (NEGATIVE); THC,Urine POSITIVE (NEGATIVE)
[2023-10-12] MEDS: Sodium Chloride 0.9% 1000 ML 1,000 ML IV STA (03:37)
--- NOTE | 2023-10-12 04:10 | XRAY ---
CLINICAL HISTORY: unresponsive COMPARISON: None TECHNIQUE: An axial non-contrast CT scan of the brain was performed from the skull base to the high parietal region with multiple reformats. ?one of the following dose reduction techniques were utilized for this exam: Automated exposure control, adjustment of the mA and/or kV according to patient size, use of iterative reconstruction? FINDINGS: No territorial infarctions, intracerebral hematomas, or extra-axial collections. No definite calvarium fractures. The visualized brain parenchyma shows a normal appearance. No focal parenchymal abnormalities are demonstrated. Alvarez-white matter differentiation is maintained. No midline shifts or deformity. Normal size and configuration of the cerebral ventricles. Normal CT appearance of the posterior fossa structures namely the cerebellar hemispheres, brainstem, and cerebellar peduncles. Scanned paranasal sinuses are clear. IMPRESSION: 1. No territorial infarctions, intracerebral hematomas, or extra-axial collections. For diagnosis of acute infarctions, MR diffusion is advised. 2. No definite calvarium fractures. Electronically Signed by: Michell Morris MD. (10/12/2023 04:06:11 EDT)
[2023-10-12 08:14] VITALS: BP 117/64; PULSE 78; RESP 14; O2SAT 99
== END 2023-10-12 08:43 | disposition home or self-care (01) ==
LOC: ED 02:07
DX: F19.90 Other psychoactive substance use, unspecified, uncomplicated (principal); R55 Syncope and collapse; R11.10 Vomiting, unspecified; Z72.0 Tobacco use
CPT/HCPCS: 36000; 36415; 70450; 80053; 80143; 80179; 80307; 82077; 84484; 85025; 93005; 99284

== ENCOUNTER 2025-01-26 13:00 | Emergency (ER) | payer OTHER ==
[2025-01-26 14:30] VITALS: RESP 16; TEMP 97; O2SAT 99
[2025-01-26] MEDS ORDERED: DECADRON 10MG INJ. ONE (14:30)
[2025-01-26] MEDS: DECADRON 10MG INJ. IM ONE (14:32)
--- NOTE | 2025-01-26 14:32 | ERPHSYRPT ---
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 and outside he had a lot of IV recent with most of them poisonous patient reports been itching since the i sureshury occurred is not able to tolerate Benadryl he is now in ED for further eval Timing/Duration: yesterday Severity: mild Associated Symptoms: denies symptoms Allergies/Adverse Reactions: aspirin Allergy (Severe, Verified 10/12/23 02:17) Tightness of Throat naproxen Allergy (Severe, Verified 10/12/23 02:17) Tightness of Throat diphenhydramine [From Benadryl] Allergy (Verified 01/26/25 14:21) ibuprofen Allergy (Verified 01/26/25 14:21) peanut Allergy (Verified 10/12/23 02:17) Home Medications: No Reportable Medications [No Reported Medications] 10/12/23 [History] Hx Tetanus, Diphtheria Vaccination/Date Given: Yes Hx Influenza Vaccination/Date Given: No Hx Pneumococcal Vaccination/Date Given: No Travel Risk - International Travel Have you traveled outside of the country in past 3 weeks: No - Emerging Infectious Disease Are you exhibiting symptoms associated with any current EIDs: No Symptoms: Vomitting - Review of Systems Constitutional: No Fever, No Chills Eyes: No Symptoms Ears, Nose, & Throat: No Symptoms Respiratory: No Cough, No Dyspnea Cardiac: No Chest Pain, No Edema, No Syncope Abdominal/Gastrointestinal: No Abdominal Pain, No Nausea, No Vomiting, No Diarrhea Genitourinary Symptoms: No Dysuria Musculoskeletal: No Back Pain, No Neck Pain Skin: Rash Neurological: No Dizziness, No Focal Weakness, No Sensory Changes Psychological: No Symptoms Endocrine: No Symptoms All Other Systems: Reviewed and Negative - Past Medical History Pertinent Past Medical History: Yes Musculoskeletal History: Other Psycho-Social History: Depression Other Medical History: pt for leg - Past Surgical History Past Surgical History: No - Social History Smoking Status: Current every day smoker Exposure to second hand smoke: Yes Drug Use: none - Social Determinants of Health Will the patient participate in the screening: Yes Do you worry about a steady place to live?: No Do you have any problems with any of the following?: No known problems In the past 12 months,have you had to go without utilities?: No Transportation Issues: No Has anyone in your support network made you feel unsafe?: No Have you or anyone in your house had to go w/o enough food: No - Nursing Vital Signs Nursing Vital Signs: Initial Vital Signs Temperature 97 F 01/26/25 13:01 Pulse Rate 81 01/26/25 13:01 Respiratory Rate 16 01/26/25 13:01 Blood Pressure 102/68 01/26/25 13:01 O2 Sat by Pulse Oximetry 99 01/26/25 13:01 Pain Scale Pain Intensity 0 - Physical Exam General Appearance: no apparent distress, alert Eye Exam: PERRL/EOMI, eyes nml inspection Ears, Nose, Throat Exam: normal ENT inspection, TMs normal, pharynx normal, moist mucous membranes Neck Exam: normal inspection, non-tender, supple, full range of motion Respiratory Exam: normal breath sounds, lungs clear, No respiratory distress Cardiovascular Exam: regular rate/rhythm, normal heart sounds, normal peripheral pulses Gastrointestinal/Abdomen Exam: soft, normal bowel sounds, No tenderness, No mass Back Exam: normal inspection, normal range of motion, No CVA tenderness, No vertebral tenderness Extremity Exam: normal range of motion, pelvis stable, swelling Neurologic Exam: alert, oriented x 3, cooperative, normal mood/affect, nml cerebellar function, nml station & gait, sensation nml, No motor deficits Skin Exam: normal color, warm, dry, other (rash), No rash Lymphatic Exam: No adenopathy SpO2: 99 Ordered Tests: Medication Summary Discontinued Medications Generic Name Dose Route Start Last Admin Trade Name Freq PRN Reason Stop Dose Admin Dexamethasone Sodium Phosphate 10 mg 01/26/25 14:26 Dexamethasone Sod Phosphate 10 Mg/Ml IM 01/26/25 14:27 STAT ONE - Progress Progress Note: 01/26/25 14:32 Patient was started on dexamethasone in ED given IM shot - Departure Departure Disposition: Home Clinical Impression: Poison ro dermatitis Condition: Stable Critical Care Time: No Referrals: DOCTOR,NO FAMILY [Primary Care Provider, UNKNOWN] - Follow up/PCP as directed Instructions: Poison Ro, Poison Fortine, Poison Sumac (DC) Additional Instructions: Recommend oatmeal baths cool wet compresses ice packs topical menthol and calamine lotion recommend technu poison cleanser or Dr. Mando dumont detox cleanser to reduce itching from the urushiol
[2025-01-26 14:36] VITALS: BP 131/79; PULSE 82
== END 2025-01-26 14:38 | disposition home or self-care (01) ==
LOC: ED 13:00
DX: L24.7 Irritant contact dermatitis due to plants, except food (principal); Z72.0 Tobacco use